=== PATIENT | male | born 1975 | race Caucasian/White ===

== ENCOUNTER 2017-05-05 12:10 | Emergency (ER) | payer BC ==
[2017-05-05] MEDS ORDERED: Sodium Chloride 0.9% 1,000 ML IV ONE (12:19)
[2017-05-05] MEDS ORDERED: Pantoprazole 40 MG Vial IVPUSH ONE (12:19)
[2017-05-05] MEDS ORDERED: Aspirin 81 MG Tab.Chew PO ONE (12:19)
--- NOTE | 2017-05-05 12:20 | EDM.PDOC ---
ED HPI GENERAL MEDICAL PROBLEM - General Chief Complaint: Chest Pain Stated Complaint: FEELING ILL Time Seen by Provider: 05/05/17 12:19 Source of Information: Reports: Patient - History of Present Illness INITIAL COMMENTS - FREE TEXT/NARRATIVE: HISTORY AND PHYSICAL: History of present illness: Patient presents with complaint of chest pain, he has a history of panic anxiety , and anxiety concerning health, who presents with 24 hours of 2 out of 10 right shoulder pain worsened by movement of his right arm and turning his head he is concerned as he has family history of heart attack in both his brother and his father at 45 years of age. Patient has had recent stress testing within the last month through the facility results on file, pain is not associated with shortness of breath diaphoresis or dizziness no actual chest pain. No fever nausea vomiting chills sweats no shortness breath headache dizziness palpitation no bowel or urine symptoms Review of systems: As per history of present illness and below otherwise all systems reviewed and negative. Past medical history: As per history of present illness and as reviewed below otherwise noncontributory. Surgical history: As per history of present illness and as reviewed below otherwise noncontributory. Social history: No reported history of drug or alcohol abuse. Family history: As per history of present illness and as reviewed below otherwise noncontributory. Physical exam: HEENT: Atraumatic, normocephalic, pupils reactive, negative for conjunctival pallor or scleral icterus, mucous membranes moist, throat clear, neck supple, nontender, trachea midline. Lungs: Clear to auscultation, breath sounds equal bilaterally, chest nontender. Heart: S1S2, regular, negative for clicks, rubs, or JVD. Abdomen: Soft, nondistended, nontender. Negative for masses or hepatosplenomegaly. Negative for costovertebral tenderness. Pelvis: Stable nontender. Genitourinary: Deferred. Rectal: Deferred. Extremities: Atraumatic, negative for cords or calf pain. Neurovascular unremarkable. Neuro: Awake, alert, oriented. Cranial nerves II through XII unremarkable. Cerebellum unremarkable. Motor and sensory unremarkable throughout. Exam nonfocal. Musculoskeletal I can reproduce pain with palpation over right paraspinous muscles and infraspinatus as well as right SCM otherwise unremarkable Diagnostics: []Lab as below EKG Chest 1 view Therapeutics: []1 L normal saline bolus Aspirin 324 mg chewable Continue current medical management follow-up with primary as scheduled on Thursday Impression: Muscle spasm Definitive disposition and diagnosis as appropriate pending reevaluation and review of above. chest & back area Pain Score (Numeric/FACES): 4 - Related Data Allergies Allergy/AdvReac Type Severity Reaction Status Date / Time No Known Allergies Allergy Verified 05/05/17 12:19 Home Meds: Home Meds Hydrocodone/Acetaminophen [Hydrocodon-Acetaminoph 7.5-325] 1 each PO DAILY 08/23 [History] LORazepam [Ativan] 0.5 mg PO TID 08/23/16 [History] amLODIPine [Norvasc] 5 mg PO DAILY 08/23/16 [History] Past Medical History Cardiovascular History: Reports: Hypertension Musculoskeletal History: Reports: Other (See Below) Other Musculoskeletal History: chronic knee pain Psychiatric History: Reports: Anxiety Social & Family History - Family History Cardiac: Reports: [place] - Tobacco Use Smoking Status *Q: Current Every Day Smoker Years of Tobacco use: 20 Packs/Tins Daily: 1 - Caffeine Use Caffeine Use: Reports: Coffee, Soda - Recreational Drug Use Recreational Drug Use: No ED ROS GENERAL - Review of Systems Review Of Systems: ROS reveals no pertinent complaints other than HPI. ED EXAM, GENERAL - Physical Exam Exam: See Below Course - Vital Signs Last Recorded V/S: Last Vital Signs Temp 36.7 C 05/05/17 12:20 Pulse 83 05/05/17 12:20 Resp 18 05/05/17 12:20 BP 140/75 05/05/17 12:20 Pulse Ox 97 05/05/17 12:20 - Orders/Labs/Meds Labs: Laboratory Tests 05/05/17 05/05/17 05/05/17 Range/Units 12:20 12:20 12:20 WBC 9.25 (4.0-11.0) K/uL RBC 4.94 (4.50-5.90) M/uL Hgb 14.7 (13.0-17.0) g/dL Hct 43.3 (38.0-50.0) % MCV 87.7 (80.0-98.0) fL MCH 29.8 (27.0-32.0) pg MCHC 33.9 (31.0-37.0) g/dL RDW Std Deviation 45.7 (28.0-62.0) fl RDW Coeff of Sebastian 14 (11.0-15.0) % Plt Count 252 (150-400) K/uL MPV 9.40 (7.40-12.00) fL Neut % (Auto) 67.7 (48.0-80.0) % Lymph % (Auto) 25.5 (16.0-40.0) % [place] % (Auto) 5.7 (0.0-15.0) % Eos % (Auto) 0.9 (0.0-7.0) % Baso % (Auto) 0.2 (0.0-1.5) % Neut # (Auto) 6.3 H (1.4-5.7) K/uL Lymph # (Auto) 2.4 (0.6-2.4) K/uL [place] # (Auto) 0.5 (0.0-0.8) K/uL Eos # (Auto) 0.1 (0.0-0.7) K/uL Baso # (Auto) 0.0 (0.0-0.1) K/uL Nucleated RBC % 0.0 /100WBC Nucleated RBCs # 0 K/uL Sodium 137 (136-146) mmol/L Potassium 4.2 (3.5-5.1) mmol/L Chloride 107 (98-110) mmol/L Carbon Dioxide 21 (21-31) mmol/L BUN 9 (6.0-23.0) mg/dL Creatinine 0.8 (0.6-1.5) mg/dL Est Cr Clr Drug Dosing 133.38 mL/min Estimated GFR (MDRD) > 60.0 ml/min Glucose 106 (60-110) mg/dL Calcium 9.5 (8.8-10.8) mg/dL Total Bilirubin 0.3 (0.1-1.5) mg/dL AST 20 (5-40) IU/L ALT 11 (8-54) IU/L Alkaline Phosphatase 68 (40-150) Troponin I < 0.10 (0.0-0.29) NG/ML Total Protein 6.7 (6.0-8.0) g/dL Albumin 4.1 (3.5-5.0) g/dL Globulin 2.6 (2.0-3.5) g/dL Albumin/Globulin Ratio 1.6 (1.3-2.8) Amylase 47 (10-90) U/L Lipase 15 (7-80) U/L Urine Color Urine Appearance Urine pH (5.0-8.0) Ur Specific [place] (1.001-1.035) Urine Protein (NEGATIVE) mg/dL Urine Glucose (UA) (NEGATIVE) mg/dL Urine Ketones (NEGATIVE) mg/dL Urine Occult Blood (NEGATIVE) Urine Nitrite (NEGATIVE) Urine Bilirubin (NEGATIVE) Urine Urobilinogen (<2.0) EU/dL Ur Leukocyte Esterase (NEGATIVE) Urine RBC (0-2/HPF) Urine WBC (0-5/HPF) Urine Bacteria (NEGATIVE) 05/05/17 Range/Units 12:59 WBC (4.0-11.0) K/uL RBC (4.50-5.90) M/uL Hgb (13.0-17.0) g/dL Hct (38.0-50.0) % MCV (80.0-98.0) fL MCH (27.0-32.0) pg MCHC (31.0-37.0) g/dL RDW Std Deviation (28.0-62.0) fl RDW Coeff of Sebastian (11.0-15.0) % Plt Count (150-400) K/uL MPV (7.40-12.00) fL Neut % (Auto) (48.0-80.0) % Lymph % (Auto) (16.0-40.0) % [place] % (Auto) (0.0-15.0) % Eos % (Auto) (0.0-7.0) % Baso % (Auto) (0.0-1.5) % Neut # (Auto) (1.4-5.7) K/uL Lymph # (Auto) (0.6-2.4) K/uL [place] # (Auto) (0.0-0.8) K/uL Eos # (Auto) (0.0-0.7) K/uL Baso # (Auto) (0.0-0.1) K/uL Nucleated RBC % /100WBC Nucleated RBCs # K/uL Sodium (136-146) mmol/L Potassium (3.5-5.1) mmol/L Chloride (98-110) mmol/L Carbon Dioxide (21-31) mmol/L BUN (6.0-23.0) mg/dL Creatinine (0.6-1.5) mg/dL Est Cr Clr Drug Dosing mL/min Estimated GFR (MDRD) ml/min Glucose (60-110) mg/dL Calcium (8.8-10.8) mg/dL Total Bilirubin (0.1-1.5) mg/dL AST (5-40) IU/L ALT (8-54) IU/L Alkaline Phosphatase (40-150) Troponin I (0.0-0.29) NG/ML Total Protein (6.0-8.0) g/dL Albumin (3.5-5.0) g/dL Globulin (2.0-3.5) g/dL Albumin/Globulin Ratio (1.3-2.8) Amylase (10-90) U/L Lipase (7-80) U/L Urine Color YELLOW Urine Appearance CLEAR Urine pH 6.0 (5.0-8.0) Ur Specific [place] <= 1.005 (1.001-1.035) Urine Protein NEGATIVE (NEGATIVE) mg/dL Urine Glucose (UA) NEGATIVE (NEGATIVE) mg/dL Urine Ketones NEGATIVE (NEGATIVE) mg/dL Urine Occult Blood NEGATIVE (NEGATIVE) Urine Nitrite NEGATIVE (NEGATIVE) Urine Bilirubin NEGATIVE (NEGATIVE) Urine Urobilinogen 0.2 (<2.0) EU/dL Ur Leukocyte Esterase NEGATIVE (NEGATIVE) Urine RBC NONE SEEN (0-2/HPF) Urine WBC 0-1 (0-5/HPF) Urine Bacteria FEW (NEGATIVE) Meds: Medications Discontinued Medications Generic Name Dose Route Start Last Admin Trade Name Freq PRN Reason Stop Dose Admin Aspirin 324 mg 05/05/17 12:19 05/05/17 12:33 Aspirin PO 05/05/17 12:20 324 mg ONETIME ONE Administration Sodium Chloride 1,000 mls @ 999 mls/hr 05/05/17 12:19 05/05/17 12:34 Normal Saline IV 05/05/17 13:19 999 mls/hr STAT ONE Administration Pantoprazole Sodium 80 mg 05/05/17 12:19 05/05/17 12:34 Protonix Iv IVPUSH 05/05/17 12:20 80 mg .BOLUS ONE Administration Departure - Departure Time of Disposition: 13:34 Disposition: Home, Self-Care 01 Condition: Good Clinical Impression: Muscle spasm - Discharge Information Forms: ED Department Discharge Additional Instructions: Ice 20 minute intervals 3 times daily 7-10 days Ibuprofen 400 mg 3 times daily 7-10 days as needed Follow-up with primary care as scheduled on Thursday Return if symptoms persist or worsen or new concerning symptoms develop The following information is given to patients seen in the emergency department who are being discharged to home. This information is to outline your options for follow-up care. We provide all patients seen in our emergency department with a follow-up referral. The need for follow-up, as well as the timing and circumstances, are variable depending upon the specifics of your emergency department visit. If you don't have a primary care physician on staff, we will provide you with a referral. We always advise you to contact your personal physician following an emergency department visit to inform them of the circumstance of the visit and for follow-up with them and/or the need for any referrals to a consulting specialist. The emergency department will also refer you to a specialist when appropriate. This referral assures that you have the opportunity for follow-up care with a specialist. All of these measure are taken in an effort to provide you with optimal care, which includes your follow-up. Under all circumstances we always encourage you to contact your private physician who remains a resource for coordinating your care. When calling for follow-up care, please make the office aware that this follow-up is from your recent emergency room visit. If for any reason you are refused follow-up, please contact the [facility] emergency department at and asked to speak to the emergency department charge nurse.
[2017-05-05 13:01] LABS: CHLORIDE,CL 107 mmol/L (98-110); SODIUM,NA 137 mmol/L (136-146)
--- NOTE | 2017-05-05 13:22 | CR ---
EXAMINATION: Portable chest radiograph. HISTORY: Shortness of breath. FINDINGS: The trachea is midline. The cardiomediastinal silhouette is within normal limits. No pulmonary infil trates, effusions or pneumothorax. Osseous structures appear unremarkable. IMPRESSION: No acute cardiopulmonary process.
[2017-05-05 13:50] VITALS: BP 135/78
== END 2017-05-05 13:45 | disposition home or self-care (01) ==
LOC: MW.ED 12:10
DX: M62.830 Muscle spasm of back (principal); I10 Essential (primary) hypertension; F41.9 Anxiety disorder, unspecified; F17.210 Nicotine dependence, cigarettes, uncomplicated; Z79.899 Other long term (current) drug therapy
CPT/HCPCS: 36415; 71010; 80053; 81001; 82150; 83690; 84484; 85025; 93005; 96361; 96374; 99285; A9270; C9113; J7040; 99284

== ENCOUNTER 2017-08-15 19:15 | Emergency (ER) | payer BC ==
[2017-08-15] MEDS ORDERED: Aspirin 81 MG Tab.Chew PO ONE (19:34)
[2017-08-15] MEDS ORDERED: Sodium Chloride 0.9% 1,000 ML IV ONE (19:34)
--- NOTE | 2017-08-15 19:36 | EDM.PDOC ---
ED HPI GENERAL MEDICAL PROBLEM - General Chief Complaint: Chest Pain Stated Complaint: PT HAS CHEST PAINS Time Seen by Provider: 08/15/17 19:36 Source of Information: Reports: Patient - History of Present Illness INITIAL COMMENTS - FREE TEXT/NARRATIVE: HISTORY AND PHYSICAL: History of present illness: []Patient presents with 2 out of 10 right-sided chest pain that began after eating lunch, he was out hunting pheasants today there is no pain with exertion. Pain is not associated with shortness of breath or diaphoresis no radiation arm neck or jaw After hunting he did have lunch at a local [place] about an hour later he developed a 2 out of 10 pain which waxes and wanes Patient has had cardiac stress testing within the last year with no cardiac findings No fever nausea vomiting chills sweats no shortness breath headache dizziness palpitation about a urine symptoms Review of systems: As per history of present illness and below otherwise all systems reviewed and negative. Past medical history: As per history of present illness and as reviewed below otherwise noncontributory. Surgical history: As per history of present illness and as reviewed below otherwise noncontributory. Social history: No reported history of drug or alcohol abuse. Family history: As per history of present illness and as reviewed below otherwise noncontributory. Physical exam: HEENT: Atraumatic, normocephalic, pupils reactive, negative for conjunctival pallor or scleral icterus, mucous membranes moist, throat clear, neck supple, nontender, trachea midline. Lungs: Clear to auscultation, breath sounds equal bilaterally, chest nontender. Heart: S1S2, regular, negative for clicks, rubs, or JVD. Abdomen: Soft, nondistended, nontender. Negative for masses or hepatosplenomegaly. Negative for costovertebral tenderness. Pelvis: Stable nontender. Genitourinary: Deferred. Rectal: Deferred. Extremities: Atraumatic, negative for cords or calf pain. Neurovascular unremarkable. Neuro: Awake, alert, oriented. Cranial nerves II through XII unremarkable. Cerebellum unremarkable. Motor and sensory unremarkable throughout. Exam nonfocal. Diagnostics: []Chest 1 view EKG Lab as below. Cardiac enzyme Therapeutics: []Liter normal saline bolus Aspirin 324 mg chewable GI cocktail Protonix 80 mg IV Symptoms resolved with above treatment Impression: GERD History of anxiety and hypertension Definitive disposition and diagnosis as appropriate pending reevaluation and review of above. Right Upper Chest Pain Score (Numeric/FACES): 4 - Related Data Allergies Allergy/AdvReac Type Severity Reaction Status Date / Time No Known Allergies Allergy Verified 05/05/17 12:19 Home Meds: Home Meds Hydrocodone/Acetaminophen [Hydrocodon-Acetaminoph 7.5-325] 1 each PO DAILY 08/23 [History] LORazepam [Ativan] 0.5 mg PO BID PRN 08/23/16 [History] amLODIPine [Norvasc] 5 mg PO DAILY 08/23/16 [History] Past Medical History HEENT History: Reports: None Cardiovascular History: Reports: Hypertension Respiratory History: Reports: None Gastrointestinal History: Reports: None Genitourinary History: Reports: None Musculoskeletal History: Reports: Other (See Below) Other Musculoskeletal History: chronic knee pain Neurological History: Reports: None Psychiatric History: Reports: Anxiety Endocrine/Metabolic History: Reports: None Hematologic History: Reports: None Immunologic History: Reports: None Oncologic (Cancer) History: Reports: None Dermatologic History: Reports: None - Infectious Disease History Infectious Disease History: Reports: None Social & Family History - Family History Family Medical History: Noncontributory Cardiac: Reports: [place] Other Cardiac Family History: Brother - Tobacco Use Smoking Status *Q: Current Every Day Smoker Years of Tobacco use: 20 Packs/Tins Daily: 1 - Caffeine Use Caffeine Use: Reports: Coffee, Soda - Recreational Drug Use Recreational Drug Use: No ED ROS GENERAL - Review of Systems Review Of Systems: ROS reveals no pertinent complaints other than HPI. ED EXAM, GENERAL - Physical Exam Exam: See Below Course - Vital Signs Last Recorded V/S: Last Vital Signs Temp 36.9 C 08/15/17 19:26 Pulse 82 08/15/17 19:26 Resp 18 08/15/17 19:26 BP 129/95 H 08/15/17 19:26 Pulse Ox 99 08/15/17 19:26 - Orders/Labs/Meds Orders: Active Orders 24 hr Category Date Time Status EKG Documentation Completion [RC] STAT Care 08/15/17 19:35 Active Chest 1V Frontal [CR] Stat Exams 08/15/17 19:35 Ordered Labs: Laboratory Tests 08/15/17 08/15/17 08/15/17 Range/Units 19:35 19:50 19:50 WBC 7.06 (4.0-11.0) K/uL RBC 4.75 (4.50-5.90) M/uL Hgb 14.3 (13.0-17.0) g/dL Hct 41.6 (38.0-50.0) % MCV 87.6 (80.0-98.0) fL MCH 30.1 (27.0-32.0) pg MCHC 34.4 (31.0-37.0) g/dL RDW Std Deviation 45.7 (28.0-62.0) fl RDW Coeff of Sebastian 14 (11.0-15.0) % Plt Count 244 (150-400) K/uL MPV 9.30 (7.40-12.00) fL Neut % (Auto) 45.1 L (48.0-80.0) % Lymph % (Auto) 42.6 H (16.0-40.0) % [place] % (Auto) 9.2 (0.0-15.0) % Eos % (Auto) 2.7 (0.0-7.0) % Baso % (Auto) 0.4 (0.0-1.5) % Neut # (Auto) 3.2 (1.4-5.7) K/uL Lymph # (Auto) 3.0 H (0.6-2.4) K/uL [place] # (Auto) 0.7 (0.0-0.8) K/uL Eos # (Auto) 0.2 (0.0-0.7) K/uL Baso # (Auto) 0.0 (0.0-0.1) K/uL Nucleated RBC % 0.0 /100WBC Nucleated RBCs # 0 K/uL Sodium 139 (136-146) mmol/L Potassium 3.9 (3.5-5.1) mmol/L Chloride 106 (98-110) mmol/L Carbon Dioxide 24 (21-31) mmol/L BUN 12 (6.0-23.0) mg/dL Creatinine 0.8 (0.6-1.5) mg/dL Est Cr Clr Drug Dosing 133.38 mL/min Estimated GFR (MDRD) > 60.0 ml/min Glucose 93 (60-110) mg/dL Calcium 9.5 (8.8-10.8) mg/dL Total Bilirubin 0.4 (0.1-1.5) mg/dL AST 16 (5-40) IU/L ALT 12 (8-54) IU/L Alkaline Phosphatase 59 (40-150) Troponin I (0.0-0.29) NG/ML Total Protein 6.5 (6.0-8.0) g/dL Albumin 3.9 (3.5-5.0) g/dL Globulin 2.6 (2.0-3.5) g/dL Albumin/Globulin Ratio 1.5 (1.3-2.8) Amylase 45 (10-90) U/L Lipase 10 (7-80) U/L Urine Color YELLOW Urine Appearance CLEAR Urine pH 6.0 (5.0-8.0) Ur Specific [place] <= 1.005 (1.001-1.035) Urine Protein NEGATIVE (NEGATIVE) mg/dL Urine Glucose (UA) NEGATIVE (NEGATIVE) mg/dL Urine Ketones NEGATIVE (NEGATIVE) mg/dL Urine Occult Blood NEGATIVE (NEGATIVE) Urine Nitrite NEGATIVE (NEGATIVE) Urine Bilirubin NEGATIVE (NEGATIVE) Urine Urobilinogen 0.2 (<2.0) EU/dL Ur Leukocyte Esterase NEGATIVE (NEGATIVE) Urine RBC 0-1 (0-2/HPF) Urine WBC NONE SEEN (0-5/HPF) Ur Epithelial Cells RARE (NONE-FEW) Urine Bacteria RARE (NEGATIVE) 08/15/17 Range/Units 19:50 WBC (4.0-11.0) K/uL RBC (4.50-5.90) M/uL Hgb (13.0-17.0) g/dL Hct (38.0-50.0) % MCV (80.0-98.0) fL MCH (27.0-32.0) pg MCHC (31.0-37.0) g/dL RDW Std Deviation (28.0-62.0) fl RDW Coeff of Sebastian (11.0-15.0) % Plt Count (150-400) K/uL MPV (7.40-12.00) fL Neut % (Auto) (48.0-80.0) % Lymph % (Auto) (16.0-40.0) % [place] % (Auto) (0.0-15.0) % Eos % (Auto) (0.0-7.0) % Baso % (Auto) (0.0-1.5) % Neut # (Auto) (1.4-5.7) K/uL Lymph # (Auto) (0.6-2.4) K/uL [place] # (Auto) (0.0-0.8) K/uL Eos # (Auto) (0.0-0.7) K/uL Baso # (Auto) (0.0-0.1) K/uL Nucleated RBC % /100WBC Nucleated RBCs # K/uL Sodium (136-146) mmol/L Potassium (3.5-5.1) mmol/L Chloride (98-110) mmol/L Carbon Dioxide (21-31) mmol/L BUN (6.0-23.0) mg/dL Creatinine (0.6-1.5) mg/dL Est Cr Clr Drug Dosing mL/min Estimated GFR (MDRD) ml/min Glucose (60-110) mg/dL Calcium (8.8-10.8) mg/dL Total Bilirubin (0.1-1.5) mg/dL AST (5-40) IU/L ALT (8-54) IU/L Alkaline Phosphatase (40-150) Troponin I < 0.10 (0.0-0.29) NG/ML Total Protein (6.0-8.0) g/dL Albumin (3.5-5.0) g/dL Globulin (2.0-3.5) g/dL Albumin/Globulin Ratio (1.3-2.8) Amylase (10-90) U/L Lipase (7-80) U/L Urine Color Urine Appearance Urine pH (5.0-8.0) Ur Specific [place] (1.001-1.035) Urine Protein (NEGATIVE) mg/dL Urine Glucose (UA) (NEGATIVE) mg/dL Urine Ketones (NEGATIVE) mg/dL Urine Occult Blood (NEGATIVE) Urine Nitrite (NEGATIVE) Urine Bilirubin (NEGATIVE) Urine Urobilinogen (<2.0) EU/dL Ur Leukocyte Esterase (NEGATIVE) Urine RBC (0-2/HPF) Urine WBC (0-5/HPF) Ur Epithelial Cells (NONE-FEW) Urine Bacteria (NEGATIVE) Meds: Medications Discontinued Medications Generic Name Dose Route Start Last Admin Trade Name Freq PRN Reason Stop Dose Admin Aspirin 324 mg 08/15/17 19:34 08/15/17 19:42 Aspirin PO 08/15/17 19:35 324 mg ONETIME ONE Administration Al Hydroxide/Mg Hydroxide 15 0 ml 08/15/17 19:43 08/15/17 19:58 ml/ Metoclopramide HCl 5 mg/ PO 08/15/17 19:44 1 each Lidocaine HCl 5 ml ONETIME ONE Administration Sodium Chloride 1,000 mls @ 999 mls/hr 08/15/17 19:34 08/15/17 19:42 Normal Saline IV 08/15/17 20:34 999 mls/hr STAT ONE Administration Sodium Chloride Confirm 08/15/17 19:54 Normal Saline Administered 08/15/17 19:55 Dose 20 mls @ as directed .ROUTE .STK-MED ONE Pantoprazole Sodium 80 mg 08/15/17 19:43 08/15/17 19:59 Protonix Iv IVPUSH 08/15/17 19:44 80 mg .BOLUS ONE Administration Departure - Departure Time of Disposition: 20:35 Disposition: Home, Self-Care 01 Condition: Good Clinical Impression: GERD (gastroesophageal reflux disease) - Discharge Information Referrals: PCP,None [Primary Care Provider] - Forms: ED Department Discharge Additional Instructions: Omeprazole 40 mg by mouth daily recommended for 2-6 weeks available over-the- counter Return if symptoms persist or worsen Follow-up with primary care in 2 weeks sooner as [address] [facility] [address] [place] [address] The following information is given to patients seen in the emergency department who are being discharged to home. This information is to outline your options for follow-up care. We provide all patients seen in our emergency department with a follow-up referral. The need for follow-up, as well as the timing and circumstances, are variable depending upon the specifics of your emergency department visit. If you don't have a primary care physician on staff, we will provide you with a referral. We always advise you to contact your personal physician following an emergency department visit to inform them of the circumstance of the visit and for follow-up with them and/or the need for any referrals to a consulting specialist. The emergency department will also refer you to a specialist when appropriate. This referral assures that you have the opportunity for follow-up care with a specialist. All of these measure are taken in an effort to provide you with optimal care, which includes your follow-up. Under all circumstances we always encourage you to contact your private physician who remains a resource for coordinating your care. When calling for follow-up care, please make the office aware that this follow-up is from your recent emergency room visit. If for any reason you are refused follow-up, please contact the [facility] emergency department at and asked to speak to the emergency department charge nurse. - My Orders Last 24 Hours: My Active Orders 08/15/17 19:35 EKG Documentation Completion [RC] STAT Chest 1V Frontal [CR] Stat - Assessment/Plan Last 24 Hours: My Active Orders 08/15/17 19:35 EKG Documentation Completion [RC] STAT Chest 1V Frontal [CR] Stat
[2017-08-15] MEDS ORDERED: Pantoprazole 40 MG Vial IVPUSH ONE (19:43)
[2017-08-15] MEDS ORDERED: Alum Hydrox/Mag Hydrox/Simeth 15 ML, Metoclopramide 5 MG, Lidocaine 2% 5 ML PO ONE ×3 (19:43)
[2017-08-15] MEDS ORDERED: Sodium Chloride 0.9% 20 ML ONE (19:54)
[2017-08-15 20:22] LABS: CHLORIDE,CL 106 mmol/L (98-110); SODIUM,NA 139 mmol/L (136-146)
[2017-08-15 21:26] VITALS: BP 134/83
--- NOTE | 2017-08-17 11:09 | CR ---
EXAM DATE: 08/15/17 PATIENT'S AGE: 41 Patient: SAGE MCINTOSH Facility: [place], [place] Site . Site : [id number] Study: XRay Chest [id number] 8:45:15 PM Ordering Physician: Tiffanie Rondon Final Report: INDICATION: Chest pain. Shortness of breath. TECHNIQUE: Chest 1 view. COMPARISON: None FINDINGS: Cardiovascular and mediastinum: Heart size and vasculature are normal in caliber and appearance. Mediastinum is within normal limits. Lungs and pleural space: Lungs are clear. No pleural effusion. No pneumothorax. Bones and soft tissues: No acute findings. IMPRESSION: No acute pulmonary process. Dictated by Alexandr Piemntel MD @ 08/15/2017 9:08:11 PM Dictated by: Alexandr Pimentel MD @ 08/15/2017 21:08:18 (Electronic Signature) Report Signed by Proxy. GIA
== END 2017-08-15 21:19 | disposition home or self-care (01) ==
LOC: MW.ED 19:15
DX: K21.9 Gastro-esophageal reflux disease without esophagitis (principal); I10 Essential (primary) hypertension; F17.210 Nicotine dependence, cigarettes, uncomplicated; Z79.899 Other long term (current) drug therapy
CPT/HCPCS: 71010; 80053; 81001; 82150; 83690; 84484; 85025; 96361; 96374; 99285; A9270; C9113; J7040; 93005; 99283

== ENCOUNTER 2017-09-29 06:31 | Day surgery (SDC) | payer BC ==
[~2017-09-29 06:31] MED LIST: Lactated Ringers 1,000 ML IV SCH; ceFAZolin 2 GM in Premix Bag 1 BAG IV ONE
--- NOTE | 2017-09-29 07:00 | PCM.PREANE ---
Preanesthetic Assessment - Anesthesia/Transfusion/Family Hx Anesthesia History: Prior Anesthesia Without Reaction Family History of Anesthesia Reaction: No Transfusion History: No Prior Transfusion(s) Intubation History: Unknown - Review of Systems General: No Symptoms Pulmonary: No Symptoms Cardiovascular: No Symptoms Gastrointestinal: No Symptoms Neurological: No Symptoms Other: Reports: None - Physical Assessment Height: 1.83 m Weight: 83.007 kg ASA Class: 2 Mental Status: Alert & Oriented x3 Airway Class: Mallampati = 2 Dentition: Reports: Normal Dentition, Excello(s) (x1 upper front) Thyro-Mental Finger Breadths: 3 Mouth Opening Finger Breadths: 2 ROM/Head Extension: Full Lungs: Clear to Auscultation, Normal Respiratory Effort Cardiovascular: Regular Rate, Regular Rhythm - Allergies Allergies/Adverse Reactions: Allergies Allergy/AdvReac Type Severity Reaction Status Date / Time No Known Allergies Allergy Verified 05/05/17 12:19 - Blood Blood Available: No - Anesthesia Plan Pre-Op Medication Ordered: None - Acknowledgements Anesthesia Type Planned: General Anesthesia Pt an Appropriate Candidate for the Planned Anesthesia: Yes Alternatives and Risks of Anesthesia Discussed w Pt/Guardian: Yes Pt/Guardian Understands and Agrees with Anesthesia Plan: Yes PreAnesthesia Questionnaire HEENT History: Other HEENT History: wears contacts Cardiovascular History: Reports: Hypertension Respiratory History: Reports: Sleep Apnea (he was told that he holds breath during sleep, I advised him to be tested for sleep apnea), SOB, Other (See Below ) Other Respiratory History: has inhaler as needed for shortness of breath, when asked if he has any lung problems he stated he didnt know "they nevery told me" , pt smokes 1 pack of cigarettes per day for over 20 yrs Gastrointestinal History: Reports: GERD Genitourinary History: Reports: None Musculoskeletal History: Reports: Back Pain, Chronic, Other (See Below) Other Musculoskeletal History: hx hand surgery Neurological History: Reports: None Psychiatric History: Reports: Anxiety, Depression Endocrine/Metabolic History: Reports: None Hematologic History: Reports: None Immunologic History: Reports: None Oncologic (Cancer) History: Reports: None Dermatologic History: Reports: Eczema Other Dermatologic History: eczema on hands - Infectious Disease History Infectious Disease History: Reports: None - Past Surgical History Head Surgeries/Procedures: Reports: None HEENT Surgical History: Reports: Cataract Surgery GI Surgical History: Reports: Appendectomy - SUBSTANCE USE Smoking Status *Q: Current Every Day Smoker (< 1 ppd) Tobacco Use Within Last Twelve Months: Cigarettes Recreational Drug Use History: No - HOME MEDS Home Medications: Home Meds LORazepam [Ativan] 1 mg PO ASDIRECTED PRN 08/23/16 [History] amLODIPine [Norvasc] 5 mg PO DAILY 08/23/16 [History] Albuterol Sulfate [Proair Hfa] 2 puff INH ASDIRECTED PRN 09/24/17 [History] Calcium Carbonate [Tums] 1 tab.chew CHEW ASDIRECTED PRN 09/24/17 [History] Omeprazole 1 tab PO ASDIRECTED PRN 09/24/17 [History] Sertraline HCl 50 mg PO DAILY 09/24/17 [History] - CURRENT (IN HOUSE) MEDS Current Meds: Current Medications Lactated Ringer's (Ringers, Lactated) 1,000 mls @ 125 mls/hr IV ASDIRECTED JEZ Discontinued Medications Cefazolin Sodium/Dextrose 2 gm (/ Premix) 50 mls @ 100 mls/hr IV ONETIME ONE Stop: 09/29/17 05:29
[2017-09-29] MEDS ORDERED: Bupivacaine 25%/EPINEPHrine/PF 30 ML ONE (07:15)
[2017-09-29] MEDS ORDERED: Lidocaine 2% 5 ML SDV ONE (07:18)
[2017-09-29] MEDS ORDERED: Ondansetron 4 MG/2 ML SDV ONE (07:18)
[2017-09-29] MEDS ORDERED: Propofol 200 MG/20 ML SDV ONE ×2 (07:19→09:22)
[2017-09-29] MEDS ORDERED: Midazolam 1 MG/ML 2 ML SDV ONE (07:19)
[2017-09-29] MEDS ORDERED: fentaNYL 100 MCG/2 ML SDV ONE ×3 (07:19→09:21)
[2017-09-29] MEDS ORDERED: HYDROmorphone 2 MG/ML Syringe ONE ×2 (08:09→08:35)
[2017-09-29] MEDS ORDERED: fentaNYL 100 MCG/2 ML SDV IVPUSH PRN (08:33)
[2017-09-29] MEDS ORDERED: HYDROmorphone 2 MG/ML Syringe IVPUSH PRN (09:15)
[2017-09-29] MEDS ORDERED: HYDROmorphone 2 MG Tab PO PRN (10:02)
[2017-09-29] MEDS ORDERED: Ondansetron 4 MG Tab PO PRN (10:05)
--- NOTE | 2017-09-29 10:13 | PCM.OPNOTE ---
- General Post-Op/Procedure Note Date of Surgery/Procedure: 09/29/17 Operative Procedure(s): excisional biopsy B ing mass Findings: large cauliflower, genital wart on both inguinal; [id number] Pre Op Diagnosis: genital wart b inguinal Anesthesia Technique: General ET Tube Primary Surgeon: Glenn Stoner Pathology: sent Complications: None Condition: Good
[2017-09-29] MEDS ORDERED: Lactated Ringers 1,000 ML IV SCH (10:15)
--- NOTE | 2017-09-29 10:33 | PCM.POSTAN ---
POST ANESTHESIA ASSESSMENT - MENTAL STATUS Mental Status: Alert, Oriented - RESPIRATORY Respiratory Status: Respiratory Rate WNL, Airway Patent, O2 Saturation Stable - CARDIOVASCULAR CV Status: Pulse Rate WNL - GASTROINTESTINAL GI Status: No Symptoms - PAIN Pain Score: 0 - POST OP HYDRATION Hydration Status: Adequate & Stable - OBSERVATIONS Free Text/Narrative:: no anesthesia problems
[2017-09-29] MEDS: Cephalexin 500 MG Cap PO SCH ×2 (10:58→17:37)
[2017-09-29] MEDS: Lactated Ringers 1,000 ML IV SCH ×2 (11:09→18:52)
[2017-09-29] MEDS: Acetaminophen/oxyCODONE 325-7.5 MG Tab PO PRN ×2 (12:08→22:35)
--- NOTE | 2017-09-29 12:20 | OR ---
SURGEON: Glenn Stoner MD DATE OF PROCEDURE: 09/29/2017 PREOPERATIVE DIAGNOSIS: Genital warts on both inguinal areas. POSTOPERATIVE DIAGNOSIS: Genital warts on both inguinal areas. PROCEDURE PERFORMED: Excision and biopsy. COMPLICATIONS: None. FINDINGS: Both masses with appearance of cauliflower and genital wart on both inguinal areas. Incision is 14 x 10 on the left and 18 x 12 on the right, and wound is loosely closed. PROCEDURE IN DETAIL: The patient was taken to the operating room and placed in the supine position. Upon induction of general endotracheal anesthesia, the patient was re-positioned into a sterile position, and the inguinal area was prepped and draped in a sterile fashion. Attention first goes to the left inguinal area, and it had a cauliflower-appearance genital wart right at the inguinal crease and involved a little bit of the medial aspect of the scrotum. Using a skin marker, the area was marked out carefully, and using a 15 blade, the skin was incised, followed by electrocautery to take the thing out. Incision was 14 x 10 cm, and the wound was loosely closed with 2-0 Prolene and packing. Attention now turned to the right similar area. Similar appearance, cauliflower, genital wart on the right inguinal area, and the area of incision was carefully marked out, and then using a 15 blade, the skin was incised, followed by electrocautery to take down the whole mass. The whole thing was 18 x 12 cm, and good hemostasis achieved by using electrocautery. The skin was easily pulled together and loosely closed with 2-0 Prolene, and the wound was packed. The left packing and the right packing used only one piece of 0.5 inch plain gauze. The plan will be having the dressing changed probably every 2 to 3 days, depends on the pain issue. The patient could have it done in the operating room or could have it done in the office, and after that, the patient followed with appropriate dressing, awakened, extubated, and transferred to recovery room in hemodynamically stable condition. The patient tolerated the procedure well. There were no intraoperative complications. Dr. Stoner was present throughout the whole procedure. JUNE / THU /[id number]
[2017-09-29] MEDS ORDERED: Nicotine 14 MG/24 Hr Patch TRDERM ONE ×2 (13:03→13:44)
[2017-09-29] MEDS ORDERED: Ketorolac 30 MG/ML SDV IVPUSH PRN (16:03)
[2017-09-29] MEDS ORDERED: Ketorolac 30 MG/ML SDV IVPUSH ONE (22:47)
[2017-09-30] MEDS: Cephalexin 500 MG Cap PO SCH ×2 (03:15→10:38)
[2017-09-30 05:41] VITALS: BP 115/63
[2017-09-30] MEDS ORDERED: Nicotine 14 MG/24 Hr Patch TRDERM SCH (09:00)
--- NOTE | 2017-09-30 09:47 | PCM48HPAN ---
Post Anesthesia Note - EVALUATION WITHIN 48HRS OF ANESTHETIC Vital Signs in Normal Range: Yes Patient Participated in Evaluation: Yes Respiratory Function Stable: Yes Airway Patent: Yes Cardiovascular Function Stable: Yes Hydration Status Stable: Yes Pain Control Satisfactory: Yes Nausea and Vomiting Control Satisfactory: Yes Mental Status Recovered: Yes - COMMENTS/OBSERVATIONS Free Text/Narrative:: Pt sitting up in bed in no apparent distress. Pt states yesterday was a tough day as far as pain was concerned, but states this morning he is doing much better. No nausea. No apparent anesthesia complications.
--- NOTE | 2017-09-30 10:25 | PCM.SURGPN ---
- General Info Date of Service: 09/30/17 Functional Status: Reports: Pain Controlled (1 request for pain meds overnight; avss, pain in control) - Review of Systems General: Reports: No Symptoms Gastrointestinal: Reports: No Symptoms - Patient Data Vitals - Most Recent: Last Vital Signs Temp 99.1 F 09/30/17 04:00 Pulse 59 L 09/30/17 04:00 Resp 20 09/30/17 04:00 BP 115/63 09/30/17 04:00 Pulse Ox 97 09/30/17 04:00 Weight - Most Recent: 183 lb I&O - Last 24 Hours: Intake & Output 09/29/17 09/30/17 09/30/17 22:59 06:59 14:59 Intake Total 967 1550 Output Total 1550 1600 Balance -583 -50 Med Orders - Current: Current Medications Cephalexin (Keflex) 500 mg PO Q8H JEZ Last Admin: 09/30/17 03:15 Dose: 500 mg Fentanyl (Sublimaze) 50 mcg IVPUSH .Q5MIN PRN PRN Reason: Pain Hydromorphone HCl (Dilaudid) 0.5 mg IVPUSH .Q10MIN PRN PRN Reason: Pain Ketorolac Tromethamine (Toradol) 30 mg IVPUSH Q8H PRN PRN Reason: Pain Stop: 10/04/17 16:04 Last Admin: 09/29/17 16:18 Dose: 30 mg Nicotine (Habitrol) 14 mg TRDERM DAILY JEZ Ondansetron HCl (Zofran) 4 mg PO Q8H PRN PRN Reason: Nausea/Vomiting Oxycodone/Acetaminophen (Percocet 325-7.5 Mg) 1 tab PO Q8H PRN PRN Reason: Pain Last Admin: 09/29/17 22:35 Dose: 1 tab Discontinued Medications Fentanyl (Sublimaze) Confirm Administered Dose 100 mcg .ROUTE .STK-MED ONE Stop: 09/29/17 07:20 Fentanyl (Sublimaze) Confirm Administered Dose 100 mcg .ROUTE .STK-MED ONE Stop: 09/29/17 09:02 Fentanyl (Sublimaze) Confirm Administered Dose 100 mcg .ROUTE .STK-MED ONE Stop: 09/29/17 09:22 Hydromorphone HCl (Dilaudid) Confirm Administered Dose 2 mg .ROUTE .STK-MED ONE Stop: 09/29/17 08:10 Hydromorphone HCl (Dilaudid) Confirm Administered Dose 2 mg .ROUTE .STK-MED ONE Stop: 09/29/17 08:36 Hydromorphone HCl (Dilaudid) 2 mg PO Q6H PRN PRN Reason: Pain Last Admin: 09/29/17 10:57 Dose: 2 mg Cefazolin Sodium/Dextrose 2 gm (/ Premix) 50 mls @ 100 mls/hr IV ONETIME ONE Stop: 09/29/17 05:29 Last Admin: 09/29/17 13:45 Dose: Not Given Lactated Ringer's (Ringers, Lactated) 1,000 mls @ 125 mls/hr IV ASDIRECTED JEZ Last Admin: 09/29/17 07:04 Dose: 125 mls/hr Bupivacaine HCl/Epinephrine Bitart (Sensorc Mpf 0.25%-Epi 1:[id number]) Confirm Administered Dose 30 mls @ as directed .ROUTE .STK-MED ONE Stop: 09/29/17 07:16 Lactated Ringer's (Ringers, Lactated) 1,000 mls @ 125 mls/hr IV ASDIRECTED JEZ Lactated Ringer's (Ringers, Lactated) 1,000 mls @ 100 mls/hr IV ASDIRECTED [facility] Last Admin: 09/29/17 18:52 Dose: 100 mls/hr Ketorolac Tromethamine (Toradol) 30 mg IVPUSH ONETIME ONE Stop: 09/29/17 22:48 Last Admin: 09/29/17 23:12 Dose: 30 mg Lidocaine (Xylocaine-Mpf 2%) Confirm Administered Dose 5 ml .ROUTE .STK-MED ONE Stop: 09/29/17 07:19 Midazolam HCl (Versed 1 Mg/Ml) Confirm Administered Dose 2 mg .ROUTE .STK-MED ONE Stop: 09/29/17 07:20 Nicotine (Habitrol) 14 mg TRDERM ONETIME ONE Stop: 09/29/17 13:04 Last Admin: 09/29/17 13:14 Dose: 14 mg Nicotine (Habitrol) 14 mg TRDERM ONETIME ONE Stop: 09/29/17 13:45 Last Admin: 09/29/17 14:11 Dose: Not Given Ondansetron HCl (Zofran) Confirm Administered Dose 4 mg .ROUTE .STK-MED ONE Stop: 09/29/17 07:19 Propofol (Diprivan 20 Ml) Confirm Administered Dose 200 mg .ROUTE .STK-MED ONE Stop: 09/29/17 07:20 Propofol (Diprivan 20 Ml) Confirm Administered Dose 200 mg .ROUTE .STK-MED ONE Stop: 09/29/17 09:23 - Exam Skin: Intact (wound drsg cdi) - Problem List Review Problem List Initiated/Reviewed/Updated: Yes - My Orders Last 24 Hours: Active Orders 24 hr Category Date Time Status Admission Status [Patient Status] [ADT] Routine ADT 09/29/17 09:55 Active Ready for Discharge [RC] PER UNIT ROUTINE Care 09/30/17 10:22 Ordered Full Liquid Diet [DIET] Diet 09/29/17 Lunch Active Cephalexin [Keflex] Med 09/29/17 10:15 Active 500 mg PO Q8H Ketorolac [Toradol] Med 09/29/17 16:03 Active 30 mg IVPUSH Q8H PRN Nicotine [Habitrol] Med 09/30/17 09:00 Active 14 mg TRDERM DAILY Ondansetron [Zofran] Med 09/29/17 10:05 Active 4 mg PO Q8H PRN Medication Orders Cephalexin (Keflex) 500 mg PO Q8H [facility] Last Admin: 09/30/17 03:15 Dose: 500 mg Admin: 09/29/17 17:37 Dose: 500 mg Admin: 09/29/17 10:58 Dose: 500 mg Fentanyl (Sublimaze) 50 mcg IVPUSH .Q5MIN PRN PRN Reason: Pain Hydromorphone HCl (Dilaudid) 0.5 mg IVPUSH .Q10MIN PRN PRN Reason: Pain Ketorolac Tromethamine (Toradol) 30 mg IVPUSH Q8H PRN PRN Reason: Pain Stop: 10/04/17 16:04 Last Admin: 09/29/17 16:18 Dose: 30 mg Nicotine (Habitrol) 14 mg TRDERM DAILY [facility] Ondansetron HCl (Zofran) 4 mg PO Q8H PRN PRN Reason: Nausea/Vomiting Oxycodone/Acetaminophen (Percocet 325-7.5 Mg) 1 tab PO Q8H PRN PRN Reason: Pain Last Admin: 09/29/17 22:35 Dose: 1 tab Admin: 09/29/17 12:08 Dose: 1 tab - Assessment Assessment (Free Text/Narrative):: doing well from surg stand point; pt taking ativan and percocet at home on a regular basis; had a very long discussion w pt re difficult to manage his pain because of that; pt voiced understanding; pt is a smoker, send home on nicoderm ; and abx; w2d drsg change qod; fu 1 - 2 wks - Plan Plan (Free Text/Narrative):: doing well from surg stand point; pt taking ativan and percocet at home on a regular basis; had a very long discussion w pt re difficult to manage his pain because of that; pt voiced understanding; pt is a smoker, send home on nicoderm ; and abx; w2d drsg change qod; fu 1 - 2 wks
== END 2017-09-30 11:00 | disposition home or self-care (01) ==
LOC: MW.SDS 06:31 → MW.MS 09:55 → MW.SDS 09-30 11:00
PROVIDERS: ATTEND Surgery
DX: A63.0 Anogenital (venereal) warts (principal); F41.9 Anxiety disorder, unspecified; F32.9 Major depressive disorder, single episode, unspecified; K21.9 Gastro-esophageal reflux disease without esophagitis; G47.30 Sleep apnea, unspecified; Z79.899 Other long term (current) drug therapy; Z90.49 Acquired absence of other specified parts of digestive tract; F17.210 Nicotine dependence, cigarettes, uncomplicated
CPT/HCPCS: 11426; 88305; A9270; J1170; J1885; J2250; J2405; J3010; J7120; 00920; J2704

== ENCOUNTER 2018-01-20 09:39 | Emergency (ER) | payer BC ==
[2018-01-20] MEDS ORDERED: Sodium Chloride 0.9% 1,000 ML IV ONE ×2 (10:18→10:22)
--- NOTE | 2018-01-20 10:18 | EDM.PDOC ---
ED HPI GENERAL MEDICAL PROBLEM - General Chief Complaint: Cardiovascular Problem Stated Complaint: RACING HEART Time Seen by Provider: 01/20/18 10:14 Source of Information: Reports: Patient History Limitations: Reports: No Limitations - History of Present Illness INITIAL COMMENTS - FREE TEXT/NARRATIVE: HISTORY AND PHYSICAL: History of present illness: Patient is a 42-year-old male who presents to the emergency room with complaints of palpitations, anxiety, and dehydration. He states over the last several nights he feels like he's waking up in the middle of the night feeling very "dry" and like he has not been taking in enough water. This morning he woke up with palpitations and feeling of anxiety. He does state he has a history of anxiety and does take medication as needed. Reports he called his primary care doctor, Dr. Escamilla, and told her of his symptoms. She agreed that this could be due to dehydration and a combination of his anxiety. He is here today to get "checked out" and hopeful to get some IV fluids. Since arrival , he reports that he feels improved and does not feel any palpitations. He states he did not take his anxiety medication today, "instead I wanted to come here and get seen". Denies any headache, fever, chills, chest pain or shortness of breath. He denies any abdominal pain, nausea, vomiting or diarrhea/constipation. Patient has a family history of heart disease. No personal history of heart disease, states he did have a stress test one year ago through our facility which he reports is "normal". Review of systems: As per history of present illness and below otherwise all systems reviewed and negative. Past medical history: As per history of present illness and as reviewed below otherwise noncontributory. Surgical history: As per history of present illness and as reviewed below otherwise noncontributory. Social history: No reported history of drug or alcohol abuse. Family history: As per history of present illness and as reviewed below otherwise noncontributory. Physical exam: Gen.: Well-developed and well-nourished 42-year-old male. Alert and oriented. Nontoxic appearing and in no acute distress. HEENT: Atraumatic, normocephalic, pupils reactive, negative for conjunctival pallor or scleral icterus, mucous membranes slightly dry/tacky, throat clear, neck supple, nontender, trachea midline. Lungs: Clear to auscultation, breath sounds equal bilaterally, chest nontender. Heart: S1S2, regular rate and rhythm without overt murmur Abdomen: Soft, nondistended, nontender. Negative for masses or hepatosplenomegaly. Negative for costovertebral tenderness. Pelvis: Stable nontender. Genitourinary: Deferred. Rectal: Deferred. Extremities: Atraumatic, moves all extremities per self without difficulty or deficits, negative for cords or calf pain. Neurovascular unremarkable. Neuro: Awake, alert, oriented. Cranial nerves II through XII unremarkable. Cerebellum unremarkable. Motor and sensory unremarkable throughout. Exam nonfocal. Did offer the patient something for his anxiety, he declines. He is requesting IV fluids at this time as he feels he is dehydrated. Patient's oral mucosa does appear dry. Routine lab work will be done. CBC, CMP, troponin and TSH are within normal limits. Chest x-ray is benign. EKG is normal sinus rhythm with no acute findings. We did discuss all of lab results today. I did offer admission, which he declines. He states he fits improved after receiving IV fluids. He'll follow up with Dr. Zamora in the next couple days. We discussed signs and symptoms that would prompt him to come back to the emergency room, he voices understanding. He denies any questions at this time. Diagnostics: CBC, CMP, troponin, EKG, chest x-ray, TSH Therapeutics: IV fluid Impression: Palpitations Plan: 1. Labs were within normal limits today; EKG shows no changes from previous EKG. If you continue to have episodes of palipations, you may need to follow up with a HOLTER monitor (can be ordered through your primary care provider) or the Travel Agency Manager. 2. Please take your anxiety medications as directed. 3. Please follow up with your primary care provider in 1-2 days. Return to the ED as needed and as discussed. Definitive disposition and diagnosis as appropriate pending reevaluation and review of above. Onset: Today Duration: Hour(s): Location: Reports: Chest - Related Data Allergies Allergy/AdvReac Type Severity Reaction Status Date / Time No Known Allergies Allergy Verified 01/20/18 09:58 Home Meds: Home Meds LORazepam [Ativan] 1 mg PO ASDIRECTED PRN 08/23/16 [History] amLODIPine [Norvasc] 5 mg PO DAILY 10/15/16 [History] Omeprazole 1 tab PO ASDIRECTED PRN 09/24/17 [History] Past Medical History HEENT History: Reports: Other (See Below) Other HEENT History: wears contacts Cardiovascular History: Reports: Hypertension Respiratory History: Reports: Sleep Apnea, SOB, Other (See Below) Other Respiratory History: has inhaler as needed for shortness of breath, when asked if he has any lung problems he stated he didnt know "they nevery told me" , pt smokes 1 pack of cigarettes per day for over 20 yrs Gastrointestinal History: Reports: GERD Genitourinary History: Reports: None Musculoskeletal History: Reports: Back Pain, Chronic, Other (See Below) Other Musculoskeletal History: hx hand surgery Neurological History: Reports: None Psychiatric History: Reports: Anxiety, Depression Endocrine/Metabolic History: Reports: None Hematologic History: Reports: None Immunologic History: Reports: None Oncologic (Cancer) History: Reports: None Dermatologic History: Reports: Eczema Other Dermatologic History: eczema on hands - Infectious Disease History Infectious Disease History: Reports: None - Past Surgical History Head Surgeries/Procedures: Reports: None HEENT Surgical History: Reports: Cataract Surgery Cardiovascular Surgical History: Reports: None Respiratory Surgical History: Reports: None GI Surgical History: Reports: Appendectomy Male Surgical History: Reports: None Endocrine Surgical History: Reports: None Neurological Surgical History: Reports: None Musculoskeletal Surgical History: Reports: None Oncologic Surgical History: Reports: None Dermatological Surgical History: Reports: None Social & Family History - Family History Family Medical History: Noncontributory Cardiac: Reports: [place] Other Cardiac Family History: Brother - Tobacco Use Smoking Status *Q: Current Every Day Smoker Years of Tobacco use: 20 Packs/Tins Daily: 1 - Caffeine Use Caffeine Use: Reports: Coffee, Soda - Recreational Drug Use Recreational Drug Use: No ED ROS GENERAL - Review of Systems Review Of Systems: ROS reveals no pertinent complaints other than HPI. ED EXAM, GENERAL - Physical Exam Exam: See Below (See dictation) EKG INTERPRETATION EKG Date: 01/20/18 Time: 09:38 Rhythm: NSR Rate (Beats/Min): 81 Comparison: No Change Course - Vital Signs Last Recorded V/S: Last Vital Signs Temp 97.6 F 01/20/18 09:59 Pulse 76 01/20/18 09:59 Resp 18 01/20/18 09:59 BP 143/76 H 01/20/18 09:59 Pulse Ox 98 01/20/18 09:59 - Orders/Labs/Meds Labs: Laboratory Tests 01/20/18 01/20/18 Range/Units 10:42 10:42 WBC 6.69 (4.0-11.0) K/uL RBC 4.87 (4.50-5.90) M/uL Hgb 14.8 (13.0-17.0) g/dL Hct 42.4 (38.0-50.0) % MCV 87.1 (80.0-98.0) fL MCH 30.4 (27.0-32.0) pg MCHC 34.9 (31.0-37.0) g/dL RDW Std Deviation 44.6 (28.0-62.0) fl RDW Coeff of Sebastian 14 (11.0-15.0) % Plt Count 237 (150-400) K/uL MPV 9.20 (7.40-12.00) fL Neut % (Auto) 64.9 (48.0-80.0) % Lymph % (Auto) 27.2 (16.0-40.0) % Smith % (Auto) 6.6 (0.0-15.0) % Eos % (Auto) 1.0 (0.0-7.0) % Baso % (Auto) 0.3 (0.0-1.5) % Neut # (Auto) 4.3 (1.4-5.7) K/uL Lymph # (Auto) 1.8 (0.6-2.4) K/uL Smith # (Auto) 0.4 (0.0-0.8) K/uL Eos # (Auto) 0.1 (0.0-0.7) K/uL Baso # (Auto) 0.0 (0.0-0.1) K/uL Nucleated RBC % 0.0 /100WBC Nucleated RBCs # 0 K/uL Sodium 140 (136-148) mmol/L Potassium 4.3 (3.5-5.1) mmol/L Chloride 106 (98-107) mmol/L Carbon Dioxide 28.4 (21.0-32.0) mmol/L BUN 9 (7.0-18.0) mg/dL Creatinine 0.8 (0.8-1.3) mg/dL Est Cr Clr Drug Dosing 132.03 mL/min Estimated GFR (MDRD) > 60.0 ml/min Glucose 96 (74-106) mg/dL Calcium 9.4 (8.5-10.1) mg/dL Total Bilirubin 0.3 (0.2-1.0) mg/dL AST 15 (15-37) IU/L ALT 14 (14-63) IU/L Alkaline Phosphatase 55 (46-116) U/L Troponin I < 0.050 (0.000-0.056) ng/mL Total Protein 6.5 (6.4-8.2) g/dL Albumin 3.6 (3.4-5.0) g/dL Globulin 2.9 (2.0-3.5) g/dL Albumin/Globulin Ratio 1.2 L (1.3-2.8) TSH 3rd Generation 1.79 (0.36-3.74) uIU/mL Meds: Medications Discontinued Medications Generic Name Dose Route Start Last Admin Trade Name Freq PRN Reason Stop Dose Admin Sodium Chloride 1,000 mls @ 999 mls/hr 01/20/18 10:18 01/20/18 10:25 Normal Saline IV 01/20/18 11:18 Not Given STAT ONE Lactated Ringer's 1,000 mls @ 999 mls/hr 01/20/18 10:21 01/20/18 10:25 Ringers, Lactated IV 01/20/18 11:21 Not Given .BOLUS ONE Sodium Chloride 1,000 mls @ 999 mls/hr 01/20/18 10:22 01/20/18 10:44 Normal Saline IV 01/20/18 11:22 999 mls/hr .Bolus ONE Administration Departure - Departure Time of Disposition: 11:46 Disposition: Home, Self-Care 01 Clinical Impression: Palpitations Instructions: Palpitations, [id number] Referrals: PCP,Unknown [Primary Care Provider] - Forms: ED Department Discharge Additional Instructions: The following information is given to patients seen in the emergency department who are being discharged to home. This information is to outline your options for follow-up care. We provide all patients seen in our emergency department with a follow-up referral. The need for follow-up, as well as the timing and circumstances, are variable depending upon the specifics of your emergency department visit. If you don't have a primary care physician on staff, we will provide you with a referral. We always advise you to contact your personal physician following an emergency department visit to inform them of the circumstance of the visit and for follow-up with them and/or the need for any referrals to a consulting specialist. The emergency department will also refer you to a specialist when appropriate. This referral assures that you have the opportunity for follow-up care with a specialist. All of these measure are taken in an effort to provide you with optimal care, which includes your follow-up. Under all circumstances we always encourage you to contact your private physician who remains a resource for coordinating your care. When calling for follow-up care, please make the office aware that this follow-up is from your recent emergency room visit. If for any reason you are refused follow-up, please contact the [facility] Emergency Department at and asked to speak to the emergency department charge nurse. [facility] [address] [place] [id number] 1. Labs were within normal limits today; EKG shows no changes from previous EKG. If you continue to have episodes of palipations, you may need to follow up with a HOLTER monitor (can be ordered through your primary care provider) or the Travel Agency Manager. 2. Please take your anxiety medications as directed. 3. Please follow up with your primary care provider in 1-2 days. Return to the ED as needed and as discussed.
[2018-01-20] MEDS ORDERED: Lactated Ringers 1,000 ML IV ONE (10:21)
[2018-01-20 11:19] LABS: CHLORIDE,CL 106 mmol/L (98-107); SODIUM,NA 140 mmol/L (136-148)
--- NOTE | 2018-01-20 11:29 | CR ---
EXAMINATION: PA chest radiograph. HISTORY: Shortness of breath. FINDINGS: The trachea is midline. The cardiomediastinal silhouette is within normal limits. No pulmonary infilt rates, effusions or pneumothorax. Osseous structures appear unremarkable. IMPRESSION: No acute cardiopulmonary process.
[2018-01-20 12:02] VITALS: BP 119/77
== END 2018-01-20 12:00 | disposition home or self-care (01) ==
LOC: MW.ED 09:39
DX: R00.2 Palpitations (principal); I10 Essential (primary) hypertension; K21.9 Gastro-esophageal reflux disease without esophagitis; F17.210 Nicotine dependence, cigarettes, uncomplicated; Z79.899 Other long term (current) drug therapy
CPT/HCPCS: 71045; 80053; 84443; 84484; 85025; 93005; 96360; 99285; J7040; 99283